=== PATIENT | male | born 1970 | race Two or more races ===

== ENCOUNTER 2019-01-09 07:45 | Emergency (ER) | payer SELFPAY ==
[~2019-01-09] VITALS: Ht 170.2 cm; Wt 83.5 kg
--- NOTE | 2019-01-09 07:50 | NUR ---
CAME IN FOR BEE STING, NOTED WITH GENERALIZED RASHES AND ITCH, ALOS W L EYE REDNESS AND SWELLING. -SOB. TO ER BED 7, HOOKED TO MONITOR, AWAITING MD PRICE.
--- NOTE | 2019-01-09 08:04 | NUR ---
DR BORREGO AT BEDSIDE
[2019-01-09] MEDS ORDERED: diphenhydrAMINE HCL 50 MG CAPSULE ONE (08:20)
[2019-01-09] MEDS ORDERED: methylPREDNISolone ACETATE 80 MG/ML VIAL ONE (08:20)
[2019-01-09] MEDS ORDERED: FAMOTIDINE (20 MG) 20 MG TABLET ONE (08:20)
--- NOTE | 2019-01-09 08:27 | NUR ---
Patient discharged to home in stable condition. Written and verbal after care instructions given. Patient verbalizes understanding of instruction.
[2019-01-09] MEDS ORDERED: diphenhydrAMINE HCL 50 MG CAPSULE PO ONE (08:30)
[2019-01-09] MEDS ORDERED: FAMOTIDINE (20 MG) 20 MG TABLET PO ONE (08:30)
[2019-01-09] MEDS ORDERED: methylPREDNISolone ACETATE 80 MG/ML VIAL IM ONE (08:30)
[2019-01-09 08:40] VITALS: BP 91/55
== END 2019-01-09 08:41 | disposition home or self-care (01) ==
LOC: ER 07:48
DX: T63.451A Toxic effect of venom of hornets, accidental (unintentional), initial encounter (principal); T63.461A Toxic effect of venom of wasps, accidental (unintentional), initial encounter; T63.441A Toxic effect of venom of bees, accidental (unintentional), initial encounter; R21 Rash and other nonspecific skin eruption; Y92.89 Other specified places as the place of occurrence of the external cause
CPT/HCPCS: 96372; 99283; J1040; Q0163